=== PATIENT | male | born 1980 | race Two or more races ===

== ENCOUNTER 2021-05-13 12:56 | Emergency (ER) | payer OTHER ==
[~2021-05-13] VITALS: Ht 183.5 cm; Wt 81.8 kg
[2021-05-13] MEDS ORDERED: CEPHALEXIN MONOHYDRATE 250 MG/5 ML SUSPENSION ORAL.SYG PO ONE (14:30)
[2021-05-13] MEDS ORDERED: SULFAMETHOX/TRIMETH DS 800-160 MG/TABLET PO ONE (14:30)
[2021-05-13] MEDS ORDERED: HYDROCODONE/ACETAMINOPHEN 5-325 MG TABLET PO ONE (14:30)
[2021-05-13] MEDS ORDERED: POVIDONE-IODINE 10% 15 ML SOLUTION UD TP ONE (14:30)
[2021-05-13] MEDS ORDERED: LIDOCAINE/PRILOCAINE 2.5% 30 GM CREAM TP ONE (14:30)
[2021-05-13] MEDS ORDERED: CEPHALEXIN MONOHYDRATE 500 MG CAPSULE PO ONE (14:45)
[2021-05-13 15:30] VITALS: BP 120/82
== END 2021-05-13 16:04 | disposition home or self-care (01) ==
LOC: EMS 13:06
DX: N48.21 Abscess of corpus cavernosum and penis (principal)
CPT/HCPCS: 10060; 99284; Z7502; Z7610

== ENCOUNTER 2024-12-16 07:21 | Inpatient (IN) | payer OTHER ==
[~2024-12-16] VITALS: Ht 182.9 cm; Wt 76.2 kg
[~2024-12-16 07:21] MED LIST: AMOX-457 PO; DOXY-354 PO; HYDR-4062 PO; LEVO-72 PO
[2024-12-16] MEDS ORDERED: 0.9% SODIUM CHLORIDE 10 ML SYRINGE IVP PRN (07:30)
[2024-12-16 07:53] LABS: PLATELET COUNT (AUTO) 306 K/uL (150-450); RED BLOOD CELL COUNT(AUTO) 3.94 MIL/uL (4.50-5.90); RED CELL DISTRIBUTION WIDTH 15.1 % (11.5-14.5); WHITE BLOOD COUNT (AUTO) 17.2 K/uL (4.5-11.0)
[2024-12-16] MEDS: ONDANSETRON HCL 4 MG/2 ML VIAL IVP ONE (07:54)
[2024-12-16] MEDS: MORPHINE SULFATE 4 MG/ML SYRINGE IVP ONE (07:54)
[2024-12-16] MEDS: ACETAMINOPHEN 1000 MG/ISO-OSM 100 ML IV ONE (07:54)
[2024-12-16] MEDS: SODIUM CHLORIDE 0.9% 2,250 ML IV ONE (07:55)
[2024-12-16] MEDS: CefTRIAXone 1 GM/DEXTROSE 50 ML IV ONE (07:55)
[2024-12-16 07:57] LABS: APPEARANCE,URINE CLEAR (CLEAR); GLUCOSE, URINE (UA) NEGATIVE (NEGATIVE); LEUKOCYTE ESTERASE ,URINE SMALL (NEGATIVE); NITRATE,URINE NEGATIVE (NEGATIVE); OCCULT BLOOD,URINE TRACE (NEGATIVE); SPECIFIC GRAVITIY, URINE 1.021 (1.003-1.030)
[2024-12-16 07:58] LABS: SODIUM SERUM 131 mmol/L (136-145)
[2024-12-16 07:59] LABS: CALCIUM, TOTAL 8.6 mg/dL (8.8-10.5); CREATININE 1.00 mg/dL (0.60-1.30); GLOMERULAR FILTR. RATE CALC > 60 mL/min (>60); GLUCOSE,RANDOM 132 mg/dL (70-110); UREA NITROGEN, BLOOD 16 mg/dL (7-18)
[2024-12-16 08:03] LABS: ASPARTATE AMINOTRANSFERASE 37 U/L (15-37); TOTAL PROTEIN, SERUM 8.6 g/dL (6.4-8.2)
[2024-12-16 08:06] LABS: LACTIC ACID 1.2 mmol/L (0.4-2.0)
[2024-12-16 08:09] LABS: COVID AG,FIA SOURCE NASAL SWAB
[2024-12-16 08:12] LABS: ALCOHOL, URINE DRUG SCREEN NEGATIVE (NEGATIVE); AMPHET/METH SCREEN,URINE POSITIVE (NEGATIVE); BARBITURATE SCREEN, URINE NEGATIVE (NEGATIVE); CANNABINOID SCREEN,URINE NEGATIVE (NEGATIVE); COCAINE SCREEN,URINE NEGATIVE (NEGATIVE); METHADONE SCREEN, URINE NEGATIVE (NEGATIVE)
[2024-12-16 08:19] LABS: PH,URINE DRUG SCREEN 6.0 (5.0-8.0)
[2024-12-16 08:50] LABS: SARS-COV2 (COVID) ANTIGEN,FIA Negative (Negative)
[2024-12-16] MEDS: DOXYCYCLINE HYCLATE 100 MG TABLET PO ONE (09:51)
[2024-12-16] MEDS: IBUPROFEN 800 MG TABLET PO ONE (09:59)
[2024-12-16] MEDS ORDERED: ZOLPIDEM TARTRATE 5 MG TABLET PO PRN (15:45)
[2024-12-16] MEDS ORDERED: MAGNESIUM HYDROXIDE SUSPENSION 30 ML UDCUP PO PRN (15:45)
[2024-12-16] MEDS ORDERED: HYDROCODONE/ACETAMINOPHEN 5-325 MG TABLET PO PRN (15:45)
[2024-12-16] MEDS ORDERED: BISACODYL 10 MG RECTAL RECTAL SUPPOSITORY PR PRN (15:45)
[2024-12-16] MEDS ORDERED: MORPHINE SULFATE 2 MG/ML SYRINGE IVP PRN (15:45)
[2024-12-16] MEDS ORDERED: ONDANSETRON HCL 4 MG/2 ML VIAL IVP PRN (15:45)
[2024-12-16] MEDS: HEPARIN SODIUM,PORCINE 5,000 UNITS/ML VIAL SQ SCH (16:07)
[2024-12-16] MEDS: SODIUM CHLORIDE 0.9% 1,000 ML IV ONE (16:07)
[2024-12-16 20:00] VITALS: BP 118/65; PULSE 95; RESP 19; TEMP 98.7; O2SAT 95
[2024-12-16] MEDS: DOCUSATE SODIUM 100 MG CAPSULE PO SCH (21:00)
[2024-12-16] MEDS: DOXYCYCLINE HYCLATE 100 MG TABLET PO SCH (22:23)
[2024-12-17 00:08] VITALS: BP 110/62; PULSE 101; RESP 17; TEMP 100.4; O2SAT 95
[2024-12-17] MEDS: ACETAMINOPHEN 325 MG TABLET PO PRN (00:13)
[2024-12-17 05:12] VITALS: BP 100/66; PULSE 97; RESP 18; TEMP 98.2; O2SAT 98
[2024-12-17 06:47] LABS: PLATELET COUNT (AUTO) 265 K/uL (150-450); RED BLOOD CELL COUNT(AUTO) 3.36 MIL/uL (4.50-5.90); RED CELL DISTRIBUTION WIDTH 15.1 % (11.5-14.5); WHITE BLOOD COUNT (AUTO) 11.3 K/uL (4.5-11.0)
[2024-12-17 07:05] LABS: CALCIUM, TOTAL 8.1 mg/dL (8.8-10.5); CREATININE 0.77 mg/dL (0.60-1.30); GLOMERULAR FILTR. RATE CALC > 60 mL/min (>60); GLUCOSE,RANDOM 83 mg/dL (70-110); SODIUM SERUM 138 mmol/L (136-145); UREA NITROGEN, BLOOD 8 mg/dL (7-18)
[2024-12-17 08:30] VITALS: BP 102/69; PULSE 86; RESP 17; TEMP 99.5; O2SAT 99
[2024-12-17] MEDS ORDERED: SODIUM CHLORIDE 0.9% 500 ML IV ONE (08:59)
[2024-12-17] MEDS: PANTOPRAZOLE SODIUM 40 MG DR TABLET PO SCH (08:59)
[2024-12-17] MEDS: CefTRIAXone 1 GM/DEXTROSE 50 ML IV SCH (09:00)
[2024-12-17 12:16] VITALS: BP 113/65; PULSE 98; RESP 18; TEMP 99.5; O2SAT 98
[2024-12-17] MEDS ORDERED: SODIUM CHLORIDE 0.9% 1,000 ML IV ONE (14:00)
[2024-12-17] MEDS: SODIUM CHLORIDE 0.9% 1,000 ML IV ONE (14:07)
[2024-12-17 16:09] VITALS: BP 111/65; PULSE 100; RESP 17; TEMP 99.3; O2SAT 98
[2024-12-17 20:11] VITALS: BP 108/59; PULSE 94; RESP 19; TEMP 99.1; O2SAT 95
[2024-12-18 00:03] VITALS: BP 105/62; PULSE 90; RESP 18; TEMP 99.1; O2SAT 94
[2024-12-18 03:22] VITALS: BP 107/64; PULSE 90; RESP 18; TEMP 99; O2SAT 94
[2024-12-18 06:15] LABS: PLATELET COUNT (AUTO) 258 K/uL (150-450); RED BLOOD CELL COUNT(AUTO) 3.26 MIL/uL (4.50-5.90); RED CELL DISTRIBUTION WIDTH 15.0 % (11.5-14.5); WHITE BLOOD COUNT (AUTO) 9.4 K/uL (4.5-11.0)
[2024-12-18 06:38] LABS: CALCIUM, TOTAL 7.9 mg/dL (8.8-10.5); CREATININE 0.79 mg/dL (0.60-1.30); GLOMERULAR FILTR. RATE CALC > 60 mL/min (>60); GLUCOSE,RANDOM 103 mg/dL (70-110); SODIUM SERUM 137 mmol/L (136-145); UREA NITROGEN, BLOOD 11 mg/dL (7-18)
[2024-12-18 07:59] VITALS: BP 111/76; PULSE 81; RESP 18; TEMP 98.2; O2SAT 99
[2024-12-18 11:05] VITALS: BP 111/65; PULSE 79; RESP 19; TEMP 98; O2SAT 97
[2024-12-18] MEDS ORDERED: LEVO750T68 PO (13:29)
== END 2024-12-18 14:45 | disposition home or self-care (01) | DRG 720 ==
LOC: EMS 07:45 → EDH 13:12 → 5S 19:27
PROVIDERS: ADMIT Internal Medicine; ATTEND Internal Medicine
DX: A41.9 Sepsis, unspecified organism (principal); D64.9 Anemia, unspecified; N43.3 Hydrocele, unspecified; N45.3 Epididymo-orchitis; R73.9 Hyperglycemia, unspecified; F15.10 Other stimulant abuse, uncomplicated; Z20.822 Contact with and (suspected) exposure to COVID-19
CPT/HCPCS: 71045; 76870; 80048; 80076; 80307; 81001; 83605; 84145; 85025; 85610; 87040; 87077; 87086; 87186; 87491; 87591; 93005; 96361; 96365; 96367; 96375; 99291; G0378; J0131; J0696; J1644; J2270; J2405; J7030; J7040; 36415-L1; 36415-TC